=== PATIENT | female | born 1970 | race Caucasian/White ===

== ENCOUNTER 2017-09-12 16:56 | Outpatient (CLI) | payer OTHER ==
[2014-06-10 05:08] VITALS: BP 108/68
--- NOTE | 2017-09-12 17:39 | Diagnostic Imaging Report ---
[facility] [address] [facility].[address] [id number] Report Submission Date: Sep 12, 2017 5:35:22 PM PRICING COORDINATOR Patient Study Name: JONY YEAGER Date: Sep 12, 2017 5:22:36 PM PRICING COORDINATOR Modality Type: CR Gender: F Description: UPPER EXTREMITY : 74 Institution: [facility] Physician: WILL TRINIDAD Examination: Plain film elbow History: Fall Comparison exams: None provided Findings: 2 views of the elbow demonstrates a small ossific density projecting within the anterior joint space on lateral view. No definite donor site identified. Radial head is within normal limits. Joint effusion Impression: Ossific body within the joint space - donor site not identified. Joint effusion. Recommend CT elbow to better evaluate. Electronically signed on Sep 12, 2017 5:35:22 PM PRICING COORDINATOR by: Papito SIDDIQI
== END 2017-09-12 16:58 ==
LOC: RAD 16:56
PROVIDERS: ATTEND Family Medicine
DX: M25.521 Pain in right elbow (principal); N91.2 Amenorrhea, unspecified
CPT/HCPCS: 73070; 81025